=== PATIENT | male | born 1945 | race Caucasian/White ===

== ENCOUNTER 2021-08-03 08:10 | Day surgery (SDC) | payer MEDICARE, MEDICAID ==
[~2021-08-03] VITALS: Ht 182.9 cm; Wt 86.6 kg
[2021-08-03] MEDS ORDERED: MIDAZOLAM HCL 5 MG/5 ML VIAL ONE (08:28)
[2021-08-03] MEDS ORDERED: MEPERIDINE 100 MG INJ. 100 MG/ML VIAL ONE (08:28)
[2021-08-03] MEDS ORDERED: GLYCOPYRROLATE 0.2 MG/ML VIAL ONE (08:28)
[2021-08-03 10:30] VITALS: BP_SYST 129
== END 2021-08-03 11:50 | disposition home or self-care (01) ==
LOC: SDS 08:10 → SMU 08:10 → SDS 11:50
PROVIDERS: ATTEND Colon & Rectal Surgery
DX: Z12.11 Encounter for screening for malignant neoplasm of colon (principal); K64.8 Other hemorrhoids; K29.70 Gastritis, unspecified, without bleeding; K29.80 Duodenitis without bleeding; K25.9 Gastric ulcer, unspecified as acute or chronic, without hemorrhage or perforation; K44.9 Diaphragmatic hernia without obstruction or gangrene; I10 Essential (primary) hypertension; E78.5 Hyperlipidemia, unspecified; Z86.010 Personal history of colon polyps; Z20.822 Contact with and (suspected) exposure to COVID-19; Z87.891 Personal history of nicotine dependence; Z88.2 Allergy status to sulfonamides; Z79.82 Long term (current) use of aspirin; Z79.899 Other long term (current) drug therapy
CPT/HCPCS: 36415 ×2; 43239; 45378; 87426; 87635; 88305; 88312; 88313; G0378; J2175; J2250; U0003; J3490

== ENCOUNTER 2021-12-28 05:57 | Inpatient (IN) | payer MEDICARE, MEDICAID ==
[~2021-12-28] VITALS: Ht 182.9 cm; Wt 84.4 kg
[2021-12-28 06:05] VITALS: BP_SYST 104
[2021-12-28 07:36] LABS: BASOPHILS % (AUTO) 0.6 % (0.0-2.0); EOSINOPHILS # (AUTO) 0.1 K/uL (0.0-0.4); EOSINOPHILS % (AUTO) 1.2 % (0.0-4.0); HEMATOCRIT 36.7 % (36-54); LYMPHOCYTES # (AUTO) 0.4 K/uL (1.0-5.5); LYMPHOCYTES % (AUTO) 4.7 % (20.5-51.5); MEAN CORPUSCULAR VOLUME 85 fL (79.0-98.0); MONOCYTES # (AUTO) 0.4 K/uL (0.0-1.0); MONOCYTES % (AUTO) 4.8 % (1.7-9.3); NEUTROPHILS # (AUTO) 6.6 K/uL (1.8-7.7); NEUTROPHILS % (AUTO) 88.7 % (40.0-70.0); PLATELET COUNT (AUTO) 182 K/uL (130-430); RED BLOOD CELL COUNT(AUTO) 4.31 MIL/uL (4.2-6.2); RED CELL DISTRIBUTION WIDTH 13.5 % (9.0-15.0); WHITE BLOOD COUNT (AUTO) 7.5 K/uL (4.8-10.8)
[2021-12-28 07:48] LABS: ANION GAP 11 (5-15); CALCIUM 8.5 mg/dL (8.4-11.0); CHLORIDE 100 mmol/L (98-107); CREATININE 2.14 mg/dL (0.55-1.30); GLUCOSE 118 mg/dL (70-99); POTASSIUM 3.8 mmol/L (3.5-5.1); UREA NITROGEN, BLOOD 31 mg/dL (8-21)
[2021-12-28 08:06] LABS: ALBUMIN 3.2 g/dL (3.4-4.8); ASPARTATE AMINOTRANSFERASE 25 U/L (10-37); TOTAL BILIRUBIN 0.6 mg/dL (0.0-1.0)
[2021-12-28 08:10] LABS: PROTHROMBIN TIME 10.3 SECS (9.5-12.5)
[2021-12-28 08:50] LABS: ALANINE AMINOTRANSFERASE 23 U/L (12-78)
[2021-12-28] MEDS ORDERED: LIDOCAINE 2% JELLY UROJECT 10 ML MM ONE ×2 (09:28→09:30)
[2021-12-28 13:14] LABS: BILIRUBIN,URINE NEGATIVE (NEGATIVE); BLOOD, URINE 3+ (NEGATIVE); CLARITY/URINE TURBID (CLEAR); COLOR,URINE RED (YELLOW); GLUCOSE,URINE NEGATIVE (NEGATIVE); KETONES,URINE NEGATIVE (NEGATIVE); LEUKOCYTE ESTERASE ,URINE NEGATIVE (NEGATIVE); NITRITE, URINE NEGATIVE (NEGATIVE); PROTEIN URINE 2+ (NEGATIVE); UROBILINOGEN,URINE 0.2 (0.2-1.0)
[2021-12-28 14:28] LABS: RBC,URINE >100 /HPF (0-3)
[2021-12-28 14:29] LABS: BACTERIA,URINE FEW /HPF (None Seen); MUCUS,URINE None Seen /LPF (None Seen); WBC,URINE 0-3 /HPF (0-3)
[2021-12-28] MEDS ORDERED: VITD2000 PO (15:36)
[2021-12-28] MEDS ORDERED: CEPH250C PO (15:36)
[2021-12-28] MEDS ORDERED: PRAV40TA63 PO (15:36)
[2021-12-28] MEDS ORDERED: TAMS-11 PO (15:36)
[2021-12-28 17:20] VITALS: BP_SYST 139
[2021-12-28 20:00] VITALS: BP_SYST 114
[2021-12-28 20:26] VITALS: BP_SYST 114
[2021-12-29 04:00] VITALS: BP_SYST 121
[2021-12-29 08:00] VITALS: BP_SYST 163
[2021-12-29 15:20] VITALS: BP_SYST 133
[2021-12-29 18:32] VITALS: BP_SYST 136
[2021-12-29 20:00] VITALS: BP_SYST 119
[2021-12-29] MEDS: D5/0.45 NS 1,000 ML IV SCH (20:38)
[2021-12-30 01:26] VITALS: BP_SYST 124
[2021-12-30] MEDS: D5/0.45 NS 1,000 ML IV SCH ×2 (06:56→14:42)
[2021-12-30 08:00] VITALS: BP_SYST 136
[2021-12-30 14:48] VITALS: BP_SYST 138
[2021-12-30 16:48] VITALS: BP_SYST 135
[2021-12-30 20:00] VITALS: BP_SYST 124
[2021-12-31] VITALS: BP_SYST 140
[2021-12-31] MEDS: D5/0.45 NS 1,000 ML IV SCH (05:01)
[2021-12-31 08:00] VITALS: BP_SYST 133
[2021-12-31 11:03] VITALS: BP_SYST 133
[2021-12-31 12:20] VITALS: BP_SYST 145
[2021-12-31 12:43] LABS: BILIRUBIN,URINE NEGATIVE (NEGATIVE); BLOOD, URINE 3+ (NEGATIVE); GLUCOSE,URINE NEGATIVE (NEGATIVE); KETONES,URINE NEGATIVE (NEGATIVE); LEUKOCYTE ESTERASE ,URINE NEGATIVE (NEGATIVE); NITRITE, URINE NEGATIVE (NEGATIVE); PROTEIN URINE NEGATIVE (NEGATIVE); UROBILINOGEN,URINE 0.2 (0.2-1.0)
[2021-12-31 12:54] LABS: COLOR,URINE STRAW (YELLOW)
[2021-12-31 12:55] LABS: CLARITY/URINE CLOUDY (CLEAR)
[2021-12-31 14:22] LABS: BACTERIA,URINE FEW /HPF (None Seen); WBC,URINE 0-3 /HPF (0-3)
[2022-01-01 16:50] LABS: URINE SODIUM, RANDOM 47 mmol/L (40-220)
== END 2021-12-31 17:00 | disposition home or self-care (01) | DRG 693 ==
LOC: SED 05:57 → STU 11:39
PROVIDERS: ADMIT Internal Medicine; ATTEND Internal Medicine
DX: N20.0 Calculus of kidney (principal); N17.0 Acute kidney failure with tubular necrosis; E44.0 Moderate protein-calorie malnutrition; R31.0 Gross hematuria; R07.9 Chest pain, unspecified; E78.00 Pure hypercholesterolemia, unspecified; E78.5 Hyperlipidemia, unspecified; R77.8 Other specified abnormalities of plasma proteins; Z20.822 Contact with and (suspected) exposure to COVID-19; I11.9 Hypertensive heart disease without heart failure; Z85.46 Personal history of malignant neoplasm of prostate; N18.32 Chronic kidney disease, stage 3b
CPT/HCPCS: 36415; 71045; 76376; 80053; 81000; 82570; 83605; 84302; 84484; 85025; 85610-TC; 85730-TC; 87040; 87081; 87086; 93005; 99291; G0378

== ENCOUNTER 2023-09-07 06:39 | Day surgery (SDC) | payer MEDICARE, MEDICAID ==
[~2023-09-07] VITALS: Ht 182.9 cm; Wt 86.2 kg
[~2023-09-07 06:39] MED LIST: CEPH250C PO; PRAV40TA63 PO; TAMS-11 PO; VITD2000 PO
[2023-09-07] MEDS ORDERED: MEPERIDINE 100 MG INJ. 100 MG/ML VIAL ONE (07:44)
[2023-09-07] MEDS ORDERED: MIDAZOLAM HCL 5 MG/5 ML VIAL ONE (07:44)
[2023-09-07 08:40] VITALS: O2SAT 99
[2023-09-07 10:49] VITALS: BP_SYST 153; PULSE 60; RESP 10
== END 2023-09-07 10:05 | disposition home or self-care (01) ==
LOC: SDS 06:39 → SMU 06:40 → SDS 10:05
PROVIDERS: ATTEND Internal Medicine Gastroenterology
DX: K21.9 Gastro-esophageal reflux disease without esophagitis (principal); K29.50 Unspecified chronic gastritis without bleeding; R10.9 Unspecified abdominal pain; R14.0 Abdominal distension (gaseous); K44.9 Diaphragmatic hernia without obstruction or gangrene; I10 Essential (primary) hypertension; E78.5 Hyperlipidemia, unspecified; Z79.899 Other long term (current) drug therapy; Z98.890 Other specified postprocedural states; Z87.891 Personal history of nicotine dependence
CPT/HCPCS: 43239; 99152; 87081; 36415; 88305; 88312; 88313; G0378; J2250; J2175